=== PATIENT | male | born 1960 | race Caucasian/White ===

== ENCOUNTER → 2017-02-01 | Outpatient (REF) | payer BC, MEDICARE ==
[~2017-02-01] MED LIST: /PRAV20TA OR; /WARF5TA OR; ACET65TA OR; ALBU17IN2 IN; ASPI325T OR; CEFT500T OR; COLA100C2 OR; COUM10TA OR; DEPA500T OR; ENOX40SY SC; GLUC500T OR; No Historical Meds; SERT50TA2 OR; VENTAER IN
== END ==
LOC: M LAB REF 16:23
PROVIDERS: ATTEND Nurse Practitioner Adult Health
DX: H60.02 Abscess of left external ear (principal)

== ENCOUNTER 2017-08-19 04:16 | Emergency (ER) | payer MEDICARE ==
[~2017-08-19] VITALS: Ht 172.7 cm; Wt 90.9 kg
[2017-08-19] MEDS ORDERED: IPRASOL4 IN (04:37)
[2017-08-19] MEDS ORDERED: GABA-279 PO (04:37)
[2017-08-19] MEDS ORDERED: VIMP150T PO (04:37)
[2017-08-19] MEDS ORDERED: ELIQ5TAB PO (04:37)
[2017-08-19] MEDS ORDERED: ATOR40TA75 PO (04:37)
[2017-08-19] MEDS ORDERED: DEPA250T2 PO (04:37)
[2017-08-19] MEDS ORDERED: FURO40TA2 PO (04:37)
[2017-08-19] MEDS ORDERED: NS 500 ML IV ONE ×3 (04:45→06:00)
[2017-08-19] MEDS ORDERED: ACETAMINOPHEN 325 MG TAB PO ONE (04:45)
[2017-08-19 05:18] LABS: BASO % 0.3 % (0.0-1.0); EOS % 0.6 % (0.0-3.0); IMMATURE GRANULOCYTE % 0.3 % (0-0); LYMPH # 1.6 10^3/uL (1.5-4.5); LYMPH % 25.7 % (24.0-44.0); MEAN CORPUSCULAR HEMOGLOBIN 32.3 pg (27.0-33.0); MEAN CORPUSCULAR HGB CONC 33.7 g/dl (32.0-36.5); MEAN CORPUSCULAR VOLUME 95.6 fl (80.0-96.0); NEUTROPHILS # 3.7 10^3/uL (1.8-7.7); NEUTROPHILS % 57.1 % (36.0-66.0); PLATELET COUNT, AUTOMATED 161 10^3/uL (150-450); RED CELL DISTRIBUTION WIDTH 12.5 % (11.5-14.5); WHITE BLOOD COUNT 6.4 10^3/uL (4.0-10.0)
[2017-08-19] MEDS ORDERED: D5W IV ONE (05:30)
[2017-08-19] MEDS ORDERED: AZITHROMYCIN INJ 500 MG, VIAL MATE ADAPTER 1 EACH in D5W 250 ML IV ONE (05:30)
[2017-08-19] MEDS ORDERED: CEFUROXIME SODIUM IV ONE (05:30)
[2017-08-19 05:32] LABS: ANION GAP 7 MEQ/L (8-16); BLOOD UREA NITROGEN 17 MG/DL (7-18); CALCIUM LEVEL 8.6 MG/DL (8.5-10.1); CARBON DIOXIDE LEVEL 30 MEQ/L (21-32); CHLORIDE LEVEL 101 MEQ/L (98-107); CREATININE FOR GFR 1.15 MG/DL (0.70-1.30); GLOMERULAR FILTRATION RATE > 60.0 (>56); GLUCOSE, FASTING 123 MG/DL (70-105); POTASSIUM SERUM 4.7 MEQ/L (3.5-5.1); SODIUM LEVEL 138 MEQ/L (136-145); T UPTAKE 37 % (33-40)
--- NOTE | 2017-08-19 06:00 | REPUSA ---
CLINICAL HISTORY: Right lower lobe process. TECHNIQUE: Multiple axial CT images were obtained through the thorax without IV contrast material. COMMENTS: Moderate centrilobular emphysema. Findings are more prominent in the upper lobes and apical segments of the lower lobes. Bilateral basilar atelectatic airspace disease in the lower lobes more on the right side. Resolution of the previously noted pleural effusion and right lower lobe associated consolidation whe n compared to prior exam on 03/01/2005. There is no evidence of pleural or parenchymal-based mass. There are no pleural effusions. There is n o evidence of hilar or mediastinal lymphadenopathy. The heart and great vessels are within normal sen its. The visualized portions of the liver are of uniform attenuation without mass or defect. There is no i ntra or extrahepatic biliary ductal dilatation. The spleen is unremarkable. The visualized pancreas i s of normal contour and attenuation characteristics. There is no evidence of adrenal mass. The visual ized portions of the kidneys present no abnormalities. The bony structures are free of lytic or blastic lesions. Prior cholecystectomy. IMPRESSION: Resolution of right lower lobe pulmonary consolidation. Resolution of right pleural effusion. Unchanged centrilobular emphysema. Mild residual basilar atelectatic airspace disease Thank you for your kind referral of this patient.
[2017-08-19 06:07] VITALS: BP 110/63
--- NOTE | 2017-08-19 08:16 | REP ---
Portable chest x-ray: Single view. History: Fever. Comparison study: December 12, 2015. Findings: The patient is rotated somewhat to the right. EKG monitoring electrodes overlie the chest. Heart is not enlarged. No infiltrate is seen. Pleural angles are sharp. There is some pleural thickening along the left lateral chest wall unchanged. Impression: No new infiltrate. Signed by Casper Archuleta MD 08/19/2017 08:41 A
== END 2017-08-19 07:04 | disposition home or self-care (01) ==
LOC: M ED 04:16 → EDBD 04:16 → M ED 07:04
DX: B34.9 Viral infection, unspecified (principal); R50.9 Fever, unspecified; E11.9 Type 2 diabetes mellitus without complications; I10 Essential (primary) hypertension; Z86.73 Personal history of transient ischemic attack (TIA), and cerebral infarction without residual deficits; E78.5 Hyperlipidemia, unspecified; R56.9 Unspecified convulsions; Z87.891 Personal history of nicotine dependence
CPT/HCPCS: 71010; 71250; 80048; 80164; 81001; 82550; 83605; 84436; 84443; 84479; 85025; 87040; 87086; 96374; 99283; J0697

== ENCOUNTER → 2017-10-03 | Outpatient (CLI) | payer MEDICARE ==
[~2017-10-03] MED LIST changes: +ATOR40TA75 PO; +DEPA250T2 PO; +ELIQ5TAB PO; +FURO40TA2 PO; +GABA-279 PO; +IPRASOL4 IN; +VIMP150T PO
[2017-10-03 18:15] LABS: BASO # 0.1 10^3/uL (0.0-0.2); BASO % 0.9 % (0.0-1.0); EOS # 0.1 10^3/uL (0.0-0.50); EOS % 0.7 % (0.0-3.0); IMMATURE GRANULOCYTE % 0.1 % (0-0); LYMPH # 3.2 10^3/uL (1.5-4.5); LYMPH % 39.2 % (24.0-44.0); MEAN CORPUSCULAR HEMOGLOBIN 31.9 pg (27.0-33.0); MEAN CORPUSCULAR HGB CONC 33.6 g/dl (32.0-36.5); MONO # 0.9 10^3/uL (0.0-0.8); MONO % 10.8 % (0.0-5.0); NEUTROPHILS # 3.9 10^3/uL (1.8-7.7); NEUTROPHILS % 48.3 % (36.0-66.0); PLATELET COUNT, AUTOMATED 265 10^3/uL (150-450); RED CELL DISTRIBUTION WIDTH 12.4 % (11.5-14.5); WHITE BLOOD COUNT 8.2 10^3/uL (4.0-10.0)
[2017-10-03 18:40] LABS: ALBUMIN/GLOBULIN RATIO 0.98 (1.00-1.93); ALKALINE PHOSPHATASE 52 U/L (45-117); ALT/SGPT 51 U/L (12-78); ANION GAP 8 MEQ/L (8-16); AST/SGOT 23 U/L (7-37); BILIRUBIN,TOTAL 0.3 MG/DL (0.2-1.0); BLOOD UREA NITROGEN 17 MG/DL (7-18); CALCIUM LEVEL 9.2 MG/DL (8.5-10.1); CARBON DIOXIDE LEVEL 27 MEQ/L (21-32); CHLORIDE LEVEL 101 MEQ/L (98-107); CREATININE FOR GFR 1.04 MG/DL (0.70-1.30); GLOMERULAR FILTRATION RATE > 60.0 (>56); GLUCOSE, FASTING 74 MG/DL (70-105); POTASSIUM SERUM 4.7 MEQ/L (3.5-5.1); SODIUM LEVEL 136 MEQ/L (136-145); TOTAL PROTEIN 8.1 GM/DL (6.4-8.2)
== END ==
LOC: M LABNEURO 13:33
PROVIDERS: ATTEND Psychiatry & Neurology Neurology
DX: I63.9 Cerebral infarction, unspecified (principal)

== ENCOUNTER → 2018-05-25 | Outpatient (REF) | payer MEDICARE ==
[2018-05-26 08:55] LABS: LDL DIRECT 69 mg/dL (0-99)
== END ==
LOC: M LAB REF 13:17
DX: E78.2 Mixed hyperlipidemia (principal)
CPT/HCPCS: 83721

== ENCOUNTER → 2018-12-04 | Outpatient (REF) | payer MEDICARE, OTHER ==
[~2018-12-04] MED LIST changes: +GABA-1171 PO; -GABA-279 PO; +IPRA0.00 IN; -IPRASOL4 IN
[2018-12-04 13:42] LABS: BLOOD UREA NITROGEN 20 MG/DL (7-18); CREATININE FOR GFR 0.73 MG/DL (0.70-1.30); GLOMERULAR FILTRATION RATE > 60.0 (>56)
== END ==
LOC: M LABNEURO 11:30
PROVIDERS: ATTEND Psychiatry & Neurology Neurology
DX: N18.9 Chronic kidney disease, unspecified (principal)

== ENCOUNTER → 2019-03-20 | Outpatient (REF) | payer MEDICARE, OTHER ==
[~2019-03-20] MED LIST changes: -/PRAV20TA OR; -/WARF5TA OR; +COUM1TAB17 OR; -ENOX40SY SC; +LOVE1INJ SC; +PRAV1TAB39 OR
== END ==
LOC: M LAB REF 12:25
PROVIDERS: ATTEND Nurse Practitioner Adult Health
DX: R56.9 Unspecified convulsions (principal)

== ENCOUNTER → 2019-03-30 | Outpatient (REF) | payer MEDICARE, OTHER | LOC: M LAB REF 16:37 | PROVIDERS: ATTEND Nurse Practitioner Adult Health | DX: R30.0 Dysuria (principal) ==

== ENCOUNTER → 2019-06-21 | Outpatient (REF) | payer MEDICARE, MEDICAID | LOC: M LAB REF 12:42 | PROVIDERS: ATTEND Nurse Practitioner Adult Health | DX: R56.9 Unspecified convulsions (principal); I69.351 Hemiplegia and hemiparesis following cerebral infarction affecting right dominant side ==

== ENCOUNTER 2019-07-30 10:10 | Day surgery (SDC) | payer MEDICARE, MEDICAID ==
[~2019-07-30] VITALS: Ht 170.2 cm; Wt 72.0 kg
[~2019-07-30 10:10] MED LIST changes: +ASPI325T54 PO; +DEPA500T2 PO; -IPRA0.00 IN; +IPRA0.00 INH; +SERT-141 PO
[2019-07-30] MEDS: NS 1,000 ML IV ONE (11:28)
[2019-07-30] MEDS ORDERED: PROPOFOL 200 MG/20 ML VIAL As Ordered ONE (12:07)
[2019-07-30] MEDS ORDERED: LIDOCAINE 2% INJ 100 MG/5 ML SDV (FOR ANES.) As Ordered ONE (12:07)
--- NOTE | 2019-07-30 12:47 | ROOR ---
Patient Name: Husam Cosby Procedure Date: 07/30/2019 11:53 AM Date of : 1960 Age: 59 Room: [facility] Gender: Male Note Status: Finalized Procedure: Upper GI endoscopy Indications: Occult blood in stool, Weight loss Providers: Morris Gillette MD Referring MD: FAWN ODELL JR, MD Requesting Provider: Medicines: Monitored Anesthesia Care Complications: No immediate complications. Procedure: Pre-Anesthesia Assessment: - Prior to the procedure, a History and Physical was performed, and patient medications and allergies were reviewed. The patient is competent. The risks and benefits of the procedure and the sedation options and risks were discussed with the patient. All questions were answered and informed consent was obtained. Patient identification and proposed procedure were verified by the physician, the nurse and the anesthesiologist in the procedure room. Mental Status Examination: alert and oriented. Airway Examination: normal oropharyngeal airway and neck mobility. Respiratory Examination: clear to auscultation. CV Examination: normal. Prophylactic Antibiotics: The patient does not require prophylactic antibiotics. Prior Anticoagulants: The patient has taken no previous anticoagulant or antiplatelet agents. ASA Grade Assessment: III - A patient with severe systemic disease. After reviewing the risks and benefits, the patient was deemed in satisfactory condition to undergo the procedure. The anesthesia plan was to use monitored anesthesia care (MAC). Immediately prior to administration of medications, the patient was re-assessed for adequacy to receive sedatives. The heart rate, respiratory rate, oxygen saturations, blood pressure, adequacy of pulmonary ventilation, and response to care were monitored throughout the procedure. The physical status of the patient was re-assessed after the procedure. The Endoscope was introduced through the mouth, and advanced to the second part of duodenum. The upper GI endoscopy was accomplished without difficulty. The patient tolerated the procedure well. Findings: The Z-line was irregular and was found 40 cm from the incisors. No gross lesions were noted in the entire esophagus. Patchy severe inflammation characterized by erythema, friability, granularity, linear erosions and aphthous ulcerations was found in the gastric antrum. Biopsies were taken with a cold forceps for Helicobacter pylori testing. Biopsies were taken with a cold forceps for histology. Verification of patient identification for the specimen was done by the physician and nurse using the patient's name, date and medical record number. Estimated blood loss was minimal. A single 10 mm sessile polyp was found in the second portion of the duodenum. The polyp was removed with a cold snare. Resection and retrieval were complete. Normal mucosa was found in the duodenal bulb and in the second portion of the duodenum. Biopsies for histology were taken with a cold forceps for evaluation of celiac disease. Impression: - Z-line irregular, 40 cm from the incisors. - No gross lesions in esophagus. - Gastritis. Biopsied. - A single duodenal polyp. Resected and retrieved. - Normal mucosa was found in the duodenal bulb and in the second portion of the duodenum. Biopsied. Recommendation: - Patient has a contact number available for emergencies. The signs and symptoms of potential delayed complications were discussed with the patient. Return to normal activities tomorrow. Written discharge instructions were provided to the patient. - Resume previous diet. - Continue present medications. 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 - Await pathology results. - Return to GI clinic in [facility] (address [address], [place], [facility]) in 4 -- 6 weeks. Please call GI clinic @ [phone] for apppointment date and time. - Return to primary care physician. Morris Gillette MD Morris Gillette MD 07/30/2019 12:47:24 PM Electronically signed by Morris Gillette MD Number of Addenda: 0 Note Initiated On: 07/30/2019 11:53 AM Estimated Blood Loss: Estimated blood loss was minimal.
--- NOTE | 2019-07-30 12:52 | ROOR ---
Patient Name: Husam Cosby Procedure Date: 07/30/2019 11:54 AM Date of : 1960 Age: 59 Room: [facility] Gender: Male Note Status: Finalized Procedure: Colonoscopy Indications: Gastrointestinal occult blood loss Providers: Morris Gillette MD Referring MD: FAWN ODELL JR, MD Requesting Provider: Medicines: Monitored Anesthesia Care Complications: No immediate complications. Procedure: Pre-Anesthesia Assessment: - Prior to the procedure, a History and Physical was performed, and patient medications and allergies were reviewed. The patient is competent. The risks and benefits of the procedure and the sedation options and risks were discussed with the patient. All questions were answered and informed consent was obtained. Patient identification and proposed procedure were verified by the physician, the nurse and the anesthesiologist in the procedure room. Mental Status Examination: alert and oriented. Airway Examination: normal oropharyngeal airway and neck mobility. Respiratory Examination: clear to auscultation. CV Examination: normal. Prophylactic Antibiotics: The patient does not require prophylactic antibiotics. Prior Anticoagulants: The patient has taken Eliquis (apixaban), last dose was 3 days prior to procedure. ASA Grade Assessment: III - A patient with severe systemic disease. After reviewing the risks and benefits, the patient was deemed in satisfactory condition to undergo the procedure. The anesthesia plan was to use monitored anesthesia care (MAC). Immediately prior to administration of medications, the patient was re-assessed for adequacy to receive sedatives. The heart rate, respiratory rate, oxygen saturations, blood pressure, adequacy of pulmonary ventilation, and response to care were monitored throughout the procedure. The physical status of the patient was re-assessed after the procedure. The Colonoscope was introduced through the anus and advanced to the terminal ileum, with identification of the appendiceal orifice and IC valve. The colonoscopy was performed without difficulty. The patient tolerated the procedure well. The quality of the bowel preparation was good. The terminal ileum, ileocecal valve, appendiceal orifice, and rectum were photographed. Scope insertion time was 3 minutes. Scope withdrawal time was 8 minutes. The total duration of the procedure was 11 minutes. Findings: The perianal and digital rectal examinations were normal. The terminal ileum appeared normal. Three sessile polyps were found in the ascending colon. The polyps were 4 to 8 mm in size. These polyps were removed with a cold snare. Resection and retrieval were complete. For hemostasis, one hemostatic clip was successfully placed. There was no bleeding at the end of the procedure. Two sessile polyps were found in the recto-sigmoid colon. The polyps were 6 to 8 mm in size. These polyps were removed with a cold snare. Resection and retrieval were complete. Multiple small and large-mouthed diverticula were found from sigmoid to transverse colon. There was no evidence of diverticular bleeding. Non-bleeding external and internal hemorrhoids were found during retroflexion. The hemorrhoids were medium-sized. Impression: - The examined portion of the ileum was normal. - Three 4 to 8 mm polyps in the ascending colon, removed with a cold snare. Resected and retrieved. Clip was placed. - Two 6 to 8 mm polyps at the recto-sigmoid colon, removed with a cold snare. Resected and retrieved. - Moderate diverticulosis from sigmoid to transverse colon. There was no evidence of diverticular bleeding. - Non-bleeding external and internal hemorrhoids. Recommendation: - Patient has a contact number available for emergencies. The signs and symptoms of potential delayed complications were discussed with the patient. Return to normal activities tomorrow. Written discharge instructions were provided to the patient. - High fiber diet. - Continue present medications. - Await pathology results. - Resume Eliquis (apixaban) at prior dose tomorrow. Refer to primary physician for further adjustment of therapy. - Repeat colonoscopy in 3 - 5 years for surveillance based on pathology results. - Return to GI clinic in [facility] (address [address], [address], [place]) in 4 -- 6 weeks. Please call GI clinic @ [phone] for apppointment date and time. - Return to primary care physician. Morris Gillette MD Morris Gillette MD 07/30/2019 12:51:58 PM Electronically signed by Morris Gillette MD Number of Addenda: 0 Note Initiated On: 07/30/2019 11:54 AM Estimated Blood Loss: Estimated blood loss was minimal.
[2019-07-30 13:15] VITALS: BP 134/60
== END 2019-07-30 13:31 | disposition home or self-care (01) ==
LOC: M OPP 10:10
PROVIDERS: ATTEND Internal Medicine Gastroenterology
DX: K64.8 Other hemorrhoids (principal); D12.2 Benign neoplasm of ascending colon; D12.7 Benign neoplasm of rectosigmoid junction; K57.30 Diverticulosis of large intestine without perforation or abscess without bleeding; R19.5 Other fecal abnormalities; R63.4 Abnormal weight loss; K22.8 Other specified diseases of esophagus; K29.70 Gastritis, unspecified, without bleeding; K31.7 Polyp of stomach and duodenum; G47.30 Sleep apnea, unspecified; F17.210 Nicotine dependence, cigarettes, uncomplicated; Z79.82 Long term (current) use of aspirin; Z79.899 Other long term (current) drug therapy; Z86.73 Personal history of transient ischemic attack (TIA), and cerebral infarction without residual deficits

== ENCOUNTER → 2019-10-30 | Outpatient (CLI) | payer MEDICARE ==
[2019-10-30 09:16] LABS: BASO # 0.1 10^3/uL (0.0-0.2); BASO % 0.8 % (0.0-1.0); EOS # 0.1 10^3/uL (0.0-0.5); EOS % 1.9 % (0.0-3.0); HEMOGLOBIN 15.8 g/dl (13.5-17.5); LYMPH # 2.7 10^3/uL (1.5-5.0); LYMPH % 43.8 % (24.0-44.0); MEAN CORPUSCULAR HEMOGLOBIN 31.2 pg (27.0-33.0); MEAN CORPUSCULAR HGB CONC 32.2 g/dl (32.0-36.5); MEAN CORPUSCULAR VOLUME 96.6 fl (80.0-96.0); MONO # 0.8 10^3/uL (0.0-0.8); MONO % 12.7 % (0.0-5.0); NEUTROPHILS # 2.5 10^3/uL (1.5-8.5); NEUTROPHILS % 40.6 % (36.0-66.0); PLATELET COUNT, AUTOMATED 222 10^3/uL (150-450); RED BLOOD COUNT 5.07 10^6/uL (4.30-6.10); WHITE BLOOD COUNT 6.2 10^3/uL (4.0-10.0)
[2019-10-30 09:47] LABS: BLOOD UREA NITROGEN 26 MG/DL (7-18); CREATININE FOR GFR 1.09 MG/DL (0.70-1.30); FERRITIN 240 NG/ML (26-388); GLOMERULAR FILTRATION RATE > 60.0 (>56); IRON (FE) 117 UG/DL (65-175); PERCENT SATURATION 32.1 % (19.7-50.0); TOTAL IRON BINDING CAPACITY 365 UG/DL (250-450)
[2019-10-30 09:53] LABS: VITAMIN B12 LEVEL 476 PG/ML
[2019-10-30 09:54] LABS: FOLATE 11.2 NG/ML
== END ==
LOC: M LAB 08:35
PROVIDERS: ATTEND Internal Medicine Gastroenterology
DX: K59.00 Constipation, unspecified (principal); K92.1 Melena

== ENCOUNTER → 2019-12-10 | Outpatient (CLI) | payer MEDICARE ==
[~2019-12-10] MED LIST changes: +E-Z-GAS II EFFERVESCENT PACKET (SODIUM BICARB./CITRIC ACID/SIMETHICONE) As Ordered ONE; +E-Z-HD 98% w/w 340GM SUSP BTL As Ordered ONE; +E-Z-PAQUE 96% w/w SUSP 176GM BTL As Ordered ONE
--- NOTE | 2019-12-10 14:06 | REP ---
Upper GI Air Contrast with SBFT The procedure was performed by ОЛЕГ Stein, under the the direct supervision of Dr. Guajardo. The images were reviewed with Dr. Guajardo. The filler sifter helper film shows no organomegaly or pathological masses. The intestinal gas pattern appears normal. There are surgical rachel in the right upper quadrant. Liquid barium was given in the prone right anterior oblique position in order to perform a limited single contrast upper GI examination. This study is slightly limited due to the patient's lack of mobility. The oral and pharyngeal stages of deglutition were unremarkable. Esophageal transport is efficient and there is no esophagitis, stricture, or mucosal ring noted. There is a hiatal hernia. Gastroesophageal reflux was not visualized throughout the course of the exam. The stomach lopez are normally outlined. The rugal folds are smooth and regular. There is no gastritis, neoplasm, or ulcer disease noted. The duodenal lopez are normally outlined. The mucosal folds are smooth and regular. There is a descending duodenal diverticulum. There is no duodenitis, peptic ulcer disease, or neoplasm noted. The visualized portion of the proximal small bowel appears normal in course and caliber. The barium column was followed through the small bowel to the level of the terminal ileum. Small bowel transit time was approximately 60 minutes. During fluoroscopy gentle palpation shows all loops are freely mobile and pliable. There are no fixed or angulated loops. The small bowel mucosal pattern is normal in course and caliber. There is no transition to set suggest a partial small-bowel obstruction. Spot filming of the terminal ileum shows it to be unremarkable. Impression: 1. Patulous GE junction. 2. Small hiatal hernia. 3. Descending duodenal diverticulum. 1.2 minutes of fluoroscopy time was utilized for this procedure. Some fluoroscopic images are performed with last image hold technology. These images require no additional radiation. Reviewed by ОЛЕГ Amaya 12/10/2019 01:35 P Electronically Signed by Daryl Guajardo MD 12/10/2019 01:57 P
== END ==
LOC: M RAD 08:27
PROVIDERS: ATTEND Internal Medicine Gastroenterology
DX: K59.00 Constipation, unspecified (principal)

== ENCOUNTER → 2020-04-22 | Outpatient (CLI) | payer MEDICARE, MEDICAID ==
[~2020-04-22] MED LIST changes: -E-Z-GAS II EFFERVESCENT PACKET (SODIUM BICARB./CITRIC ACID/SIMETHICONE) As Ordered ONE; -E-Z-HD 98% w/w 340GM SUSP BTL As Ordered ONE; -E-Z-PAQUE 96% w/w SUSP 176GM BTL As Ordered ONE; +FAMO20TA PO
[2020-04-22 14:02] LABS: BASO # 0.1 10^3/uL (0.0-0.2); BASO % 0.8 % (0.0-1.0); EOS # 0.1 10^3/uL (0.0-0.5); EOS % 1.4 % (0.0-3.0); HEMATOCRIT 41.4 % (42.0-52.0); HEMOGLOBIN 13.8 g/dl (13.5-17.5); LYMPH # 2.8 10^3/uL (1.5-5.0); LYMPH % 37.2 % (24.0-44.0); MEAN CORPUSCULAR HEMOGLOBIN 31.4 pg (27.0-33.0); MEAN CORPUSCULAR HGB CONC 33.3 g/dl (32.0-36.5); MEAN CORPUSCULAR VOLUME 94.3 fl (80.0-96.0); NEUTROPHILS # 3.6 10^3/uL (1.5-8.5); NEUTROPHILS % 47.3 % (36.0-66.0); PLATELET COUNT, AUTOMATED 181 10^3/uL (150-450); RED BLOOD COUNT 4.39 10^6/uL (4.30-6.10); WHITE BLOOD COUNT 7.6 10^3/uL (4.0-10.0)
== END ==
LOC: M LAB 13:13
PROVIDERS: ATTEND Internal Medicine Gastroenterology
DX: K62.5 Hemorrhage of anus and rectum (principal)

== ENCOUNTER 2020-04-25 10:09 | Emergency (ER) | payer MEDICARE, MEDICAID ==
[~2020-04-25] VITALS: Ht 170.2 cm; Wt 77.3 kg
[~2020-04-25 10:09] MED LIST changes: -FAMO20TA PO
[2020-04-25] MEDS ORDERED: FAMO20TA PO (10:27)
[2020-04-25 11:10] LABS: BASO % 0.5 % (0.0-1.0); EOS # 0.1 10^3/uL (0.0-0.5); EOS % 1.4 % (0.0-3.0); HEMATOCRIT 42.6 % (42.0-52.0); LYMPH # 2.5 10^3/uL (1.5-5.0); LYMPH % 31.2 % (24.0-44.0); MEAN CORPUSCULAR HEMOGLOBIN 31.3 pg (27.0-33.0); MEAN CORPUSCULAR HGB CONC 32.9 g/dl (32.0-36.5); MEAN CORPUSCULAR VOLUME 95.3 fl (80.0-96.0); MONO % 12.4 % (0.0-5.0); NEUTROPHILS # 4.3 10^3/uL (1.5-8.5); NEUTROPHILS % 54.2 % (36.0-66.0); PLATELET COUNT, AUTOMATED 184 10^3/uL (150-450); RED BLOOD COUNT 4.47 10^6/uL (4.30-6.10); WHITE BLOOD COUNT 7.9 10^3/uL (4.0-10.0)
[2020-04-25 11:41] LABS: ALBUMIN 3.1 GM/DL (3.2-5.2); ALT/SGPT 1225 U/L (12-78); BILIRUBIN,DIRECT 3.6 MG/DL (0.0-0.2); BILIRUBIN,TOTAL 4.3 MG/DL (0.2-1.0); LIPASE 333 U/L (73-393); TOTAL PROTEIN 7.4 GM/DL (6.4-8.2)
[2020-04-25] MEDS ORDERED: ISOVUE-370 76% 100ML VIAL As Ordered ONE (12:23)
[2020-04-25 12:41] LABS: INR 0.94; PROTHROMBIN TIME 12.3 SECONDS (11.8-14.0)
[2020-04-25 12:42] LABS: HEPATITIS B SURFACE ANTIGEN NEGATIVE (NEGATIVE)
[2020-04-25 12:42] LABS: PARTIAL THROMBOPLASTIN TIME 29.2 SECONDS (25.0-38.4)
[2020-04-25 13:10] LABS: HEPATITIS B CORE ANTIBODY IGM NEGATIVE (NEGATIVE); HEPATITIS C VIRUS ABY INDEX 0.2 INDEX (<0.8)
[2020-04-25 13:12] LABS: HEPATITIS A ANTIBODY IGM NEGATIVE (NEGATIVE)
[2020-04-25] MEDS ORDERED: NS 1,000 ML IV ONE (14:00)
--- NOTE | 2020-04-25 14:11 | REP ---
CT ABDOMEN AND PELVIS WITH IV CONTRAST: In the visualized lung bases, there are mild fibroatelectatic changes. The liver demonstrates diffuse fatty infiltration. There is mild intrahepatic biliary dilatation. There is dilatation of the common bile duct. Maximum diameter is approximately 13 mm. Patient has had a prior cholecystectomy. There appears to be obstruction of the common bile duct by a cystic mass in the posterior pancreatic head, which measures 3.2 cm in diameter. There is no pancreatic duct dilatation. 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 There is no extension into the intrahepatic portal veins. The spleen is normal in size with no definite abnormality. There is bilateral adrenal gland thickening. Early nodule of the medial lymph of the left adrenal cannot be excluded. There is a left renal mass of the lower pole with heterogeneous enhancement suspicious for carcinoma 3.6 cm in diameter. There are also small bilateral cysts. There is no hydronephrosis. There is mild atherosclerotic calcification of the abdominal aorta without aneurysm. There is a mildly enlarged lymph node in the mesentery just below the body of the pancreas measuring 1.8 x 1.1 cm. There are other smaller subcentimeter adjacent mesenteric lymph nodes. There is no free air or free fluid. There is no bowel wall thickening. The appendix is normal. There is no pelvic mass. Urinary bladder is mildly distended and grossly unremarkable. There are degenerative changes of the spine. IMPRESSION: Cystic mass in the pancreatic head with peripheral enhancement measuring 3.2 cm in diameter. This obstructs the common bile duct causing biliary dilatation. Pancreatic duct is not dilated. 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 Enhancing mass lower pole left kidney 3.6 cm likely representing renal cell carcinoma. Mild central mesenteric adenopathy. Somewhat nodular thickening of the medial limb of the left adrenal gland. Early left adrenal mass could not be excluded. Electronically Signed by Daryl Rincon MD 04/29/2020 06:33 P
[2020-04-25 18:10] VITALS: BP 136/60
== END 2020-04-25 18:12 | disposition short-term general hospital (02) ==
LOC: M ED 10:09
DX: N28.89 Other specified disorders of kidney and ureter (principal); K86.2 Cyst of pancreas; R17 Unspecified jaundice; E27.9 Disorder of adrenal gland, unspecified; E11.9 Type 2 diabetes mellitus without complications; I48.91 Unspecified atrial fibrillation; I10 Essential (primary) hypertension; F17.200 Nicotine dependence, unspecified, uncomplicated; Z79.82 Long term (current) use of aspirin; Z79.899 Other long term (current) drug therapy
CPT/HCPCS: 74177; 80047; 80076; 81001; 83690; 85025; 85610; 85730; 86705; 86709; 86803; 87340; 93041; 96360; 96361; 99285; Q9967